=== PATIENT | female | born 1990 | race Caucasian/White ===

== ENCOUNTER 2016-07-31 15:10 | Emergency (ER) | payer OTHER ==
[2016-07-31 15:22] VITALS: BP 148/75; PULSE 86; RESP 18; TEMP 97.2
[2016-07-31] MEDS ORDERED: GABAPENTIN 400 MG CAP PO STA (15:33)
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
== END 2016-07-31 16:02 | disposition home or self-care (01) ==
LOC: EC 15:10
DX: M54.31 Sciatica, right side (principal)
CPT/HCPCS: 99283

== ENCOUNTER 2017-01-13 09:20 | Emergency (ER) | payer OTHER ==
[2017-01-13 09:28] VITALS: BP 126/74; PULSE 81; RESP 18; TEMP 97.7
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
== END 2017-01-13 10:12 | disposition home or self-care (01) ==
LOC: EC 09:20
DX: M54.5 Low back pain (principal); G89.29 Other chronic pain; Z76.0 Encounter for issue of repeat prescription; Z85.51 Personal history of malignant neoplasm of bladder
CPT/HCPCS: 99283

== ENCOUNTER 2017-09-06 09:25 | Emergency (ER) | payer OTHER ==
[2017-09-06 09:41] VITALS: RESP 18
--- NOTE | 2017-09-06 10:52 | XR ---
EXAMINATION TYPE: XR lumbar spine 2 or 3V DATE OF EXAM: 09/06/2017 CLINICAL HISTORY: pain TECHNIQUE: Three views of the lumbar spine are submitted. COMPARISON: 04/04/2015 FINDINGS: There are 5 lumbar type vertebral bodies identified. The lumbar spine shows satisfactory alignment w ithout evidence of acute fracture or dislocation. Vertebral body heights are within normal limits. Disc spaces are within normal limits. The overlying soft tissue appears unremarkable. IMPRESSION: No acute fracture or dislocation is seen in the lumbar spine. ICD 10 NO FRACTURE, INITIAL EVALUATION
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
[2017-09-06 11:41] VITALS: BP 127/83; PULSE 95; TEMP 98.3
== END 2017-09-06 11:41 | disposition home or self-care (01) ==
LOC: EC 09:25
DX: M54.31 Sciatica, right side (principal); W19.XXXA Unspecified fall, initial encounter
CPT/HCPCS: 72100; 99284